=== PATIENT | female | born 1995 | race Caucasian/White ===

== ENCOUNTER 2016-12-23 16:43 | Emergency (ER) | payer OTHER ==
[2016-12-23 16:53] VITALS: BP 142/95; PULSE 115; RESP 14; TEMP 98.4; O2SAT 94
[2016-12-23] MEDS ORDERED: HYDROCODONE/APAP 5/325 TAB PO ONE (16:58)
[2016-12-23] MEDS ORDERED: HYDROCOD/APAP 5/325 PREPACK#6 BTL TAKEHOME ONE (17:00)
--- NOTE | 2016-12-23 17:00 | EDPHY ---
H & P Time Seen by Provider: 12/23/16 16:55 HPI/ROS: CHIEF COMPLAINT: Left foot injury HISTORY OF PRESENT ILLNESS: 21-year-old college student stubbed her left foot on a bed at 3:00 p.m. today. She presents with pain in the dorsum of her left foot which started just after the injury. REVIEW OF SYSTEMS: No other acute injury. No weakness or numbness in the toes. PAST MEDICAL HISTORY: Negative Social history: College student General Appearance: Alert and conversant, cooperative. Proximal tib-fib and bilateral malleoli nontender. Ankle joint is stable. Achilles and calcaneus is nontender. There is swelling and tenderness over the instep and just distally but all proximal to the toes. No 5th metatarsal tenderness. Normal motor sensory and capillary refill in the toes. No skin laceration or bleeding Emergency Department course/MDM: Oral Vicodin x1. X-ray of the left foot. Smoking Status: Current some day smoker Constitutional: Initial Vital Signs Temperature (C) 36.9 C 12/23/16 16:49 Heart Rate 115 H 12/23/16 16:49 Respiratory Rate 14 12/23/16 16:49 Blood Pressure 142/95 H 12/23/16 16:49 O2 Sat (%) 94 12/23/16 16:49 O2 Delivery Mode Room Air Allergies/Adverse Reactions: pineapple Allergy (Verified 12/23/16 16:49) MDM/Departure - MDM Diagnostics: X-ray of the left foot viewed independently by myself is negative for fracture or acute injury. Medications Given: Discontinued Medications Acetaminophen/Hydrocodone Bitart ([place] 5/325) 1 tab PO EDNOW ONE Stop: 12/23/16 16:59 Last Admin: 12/23/16 17:05 Dose: 1 tab Acetaminophen/Hydrocodone Bitart ([place] 5/325mg Prepack#6) 1 btl TAKEHOME EDNOW ONE Stop: 12/23/16 17:01 Last Admin: 12/23/16 17:05 Dose: 1 btl - Depart Disposition: Home, Routine, Self-Care Clinical Impression: Contusion of left foot Qualifiers: Encounter type: initial encounter Qualifier Code: (S90.32XA) Contusion of left foot, initial encounter Condition: Good Instructions: Contusion in Adults (ED) Additional Instructions: Activity as tolerated. Please follow up with Orthopedics if you are not getting better in 1 week. Referrals: Marc Ruelas MD [Medical Doctor] - As per Instructions (Orthopedic follow-up)
--- NOTE | 2016-12-23 17:25 | DX ---
Left foot, 3 views. History: foot swelling s/p trauma Comparison examination:none available Findings: No fracture identified. Normal alignment. Joint spaces are maintained. Soft tissues micheline ear unremarkable. Impression: Negative left foot radiographs.
== END 2016-12-23 17:35 | disposition home or self-care (01) ==
DX: S90.32XA Contusion of left foot, initial encounter (principal); F17.200 Nicotine dependence, unspecified, uncomplicated; W22.8XXA Striking against or struck by other objects, initial encounter; Y93.89 Activity, other specified
CPT/HCPCS: L3260

== ENCOUNTER 2017-05-31 13:22 | Emergency (ER) | payer OTHER ==
[2017-05-31 13:31] VITALS: RESP 16
--- NOTE | 2017-05-31 14:08 | EDPHY ---
H & P Time Seen by Provider: 05/31/17 14:00 HPI/ROS: CHIEF COMPLAINT: Sore throat, right eye discharge, pain HISTORY OF PRESENT ILLNESS: 22-year-old immunocompetent female, remote history of tonsillectomy, awoke this morning with right orbital swelling, retro-orbital pain, pain with extraocular movements as well as sore throat. Fever or chills. No nausea or vomiting. No cough. No trauma. No corrective lens use history. No visual acuity changes although she does note that she woke with crusting over her eyes. REVIEW OF SYSTEMS: A ten point review of systems was performed and is negative with the exception of the items mentioned in the HPI PAST MEDICAL & SURGICAL HISTORY: Remote history of tonsillectomy SOCIAL HISTORY:student. Nonsmoker PHYSICAL EXAM (Prior to examination, patient consented to physical exam, hands were washed and my usual and customary physical exam procedures followed) 1) GENERAL: Well-developed, well-nourished, alert and oriented. Appears to be in no acute distress. 2) HEAD: Normocephalic, atraumatic 3) HEENT: Right eye: Right periorbital erythema, induration. No proptosis. No crepitus. Positive Pain with extraocular movements. Positive mucopurulent discharge. No facial lesions. Nasopharynx, oropharynx, clear, no lesions. No intraoral lesions. Ears bilaterally with normal tympanic membranes. 4) NECK: Full range of motion, no meningeal signs. 5) LUNGS: Clear auscultation bilaterally, no wheezes, no rhonchi, no retractions. 6) HEART: Regular rate and rhythm, no murmur, no heave, no gallop. 7) ABDOMEN: No guarding, no rebound, no focal tenderness, 8) MUSCULOSKELETAL: No peripheral edema or discoloration. 9) BACK: no visual or palpable abnormality. 10) SKIN: [No rash, no petechiae. DIFFERENTIAL DIAGNOSIS: in no particular include but limited to infectious conjunctivitis, preseptal cellulitis, septal cellulitis Smoking Status: Current some day smoker Constitutional: Initial Vital Signs Temperature (C) 37.1 C 05/31/17 13:28 Heart Rate 94 05/31/17 13:28 Respiratory Rate 16 05/31/17 13:28 Blood Pressure 128/82 H 05/31/17 13:28 O2 Sat (%) 99 05/31/17 13:28 O2 Delivery Mode Room Air Allergies/Adverse Reactions: pineapple Allergy (Verified 12/23/16 16:49) Home Medications: Medication Instructions Recorded Cephalexin [Keflex] 500 mg PO QID 10 Days 05/31/17 Ofloxacin 0.3% [Ocuflox 0.3%] 2 drops EACHEYE QID #1 opht.btl 05/31/17 MDM/Departure - MDM Imaging: Discussed imaging studies w/ on call Radiologist ED Course/Re-evaluation: 2:15 p.m.: Patient also seen exam by secondary supervising physician Dr. Davis in the ER. Concerns in this patient for possible orbital cellulitis. Will obtain CT imaging as well as laboratory studies. 3:55 p.m.: Re-evaluation, discussed the imaging studies showing no evidence of orbital cellulitis. Plan will be ophthalmic eyedrops for conjunctivitis and oral antibiotics for periorbital cellulitis. She has no history of known MRSA. Plan will be monotherapy with cephalosporin. Recommend close follow-up with ophthalmology Dr. Karlos Beltran in 24 hours. Usual and customary ophthalmological precautions instructions provided - Depart Disposition: Home, Routine, Self-Care Clinical Impression: Periorbital cellulitis of right eye Conjunctivitis Qualifiers: Conjunctivitis type: acute Acute conjunctivitis type: bacterial Laterality: right Qualified Code(s): H10.31 - Unspecified acute conjunctivitis, right eye Condition: Good Instructions: Periorbital Cellulitis in Adults (ED), Conjunctivitis (ED) Additional Instructions: Return to the ER if you develop new or worsening symptoms, if you develop fevers , or any other symptoms that concern you. Prescriptions: Cephalexin [Keflex] 500 mg PO QID 10 Days Ofloxacin 0.3% [Ocuflox 0.3%] 2 drops EACHEYE QID #1 opht.btl Referrals: Karlos Beltran MD [Medical Doctor] - 1-2 days without fail
[2017-05-31 14:48] LABS: % IMMATURE GRANULYOCYTES 0.5 % (0.0-1.1); ABSOLUTE IMMATURE GRANULOCYTES 0.06 10^3/uL (0.00-0.10); ADD DIFF? NO; ADD MORPH? NO; ADD SCAN? NO; ATYPICAL LYMPHOCYTE FLAG 0 (0-99); FRAGMENT RBC FLAG 0 (0-99); HEMATOCRIT 41.6 % (38.0-47.0); HEMOGLOBIN 14.1 g/dL (12.6-16.3); LEFT SHIFT FLG 20 (0-99); LIPEMIA HEMOLYSIS FLAG 90 (0-99); MEAN CELL HEMOGLOBIN 32.9 pg (27.9-34.1); MEAN CELL HEMOGLOBIN CONCENTR. 33.9 g/dL (32.4-36.7); MEAN CELL VOLUME 97.2 fL (81.5-99.8); MEAN PLATELET VOLUME 9.5 fL (8.7-11.7); PLATELET CLUMPS FLAG 0 (0-99); PLATELET COUNT 344 10^3/uL (150-400); RED BLOOD CELL COUNT 4.28 10^6/uL (4.18-5.33); RED CELL DISTRIBUTION WIDTH 11.9 % (11.5-15.2)
[2017-05-31 15:06] LABS: ANION GAP 13 mEq/L (8-16); CALCIUM 9.6 mg/dL (8.5-10.4); CARBON DIOXIDE 21 mEq/l (22-31); CHLORIDE 109 mEq/L (97-110); CREATININE 0.9 mg/dL (0.6-1.0); GLOMERULAR FILTRATION RATE > 60; GLUCOSE 89 mg/dL (70-100); POTASSIUM 4.5 mEq/L (3.5-5.2); SODIUM 143 mEq/L (134-144)
[2017-05-31] MEDS ORDERED: IOPAMIDOL (ISOVUE-300) 100 ML BTL ONE (15:19)
[2017-05-31 16:20] VITALS: BP 118/72; PULSE 80; TEMP 98.6; O2SAT 96
== END 2017-05-31 16:19 | disposition home or self-care (01) ==
DX: H10.31 Unspecified acute conjunctivitis, right eye (principal); F17.200 Nicotine dependence, unspecified, uncomplicated; L03.211 Cellulitis of face
CPT/HCPCS: Q9967